=== PATIENT | male | born 1940 | race African-American/Black ===

== ENCOUNTER 2022-12-05 15:09 | Inpatient (IN) ==
[2022-12-05 15:43] LABS: Basophils # 0.1 10*3/uL (0.0-0.2); Basophils % 0.3 % (0.0-0.8); Eosinophils % 0.1 % (0.00-10.9); Hematocrit 44.2 VOL% (42.0-52.0); Hemoglobin 14.5 GM/DL (14.0-18.0); Immature Granulocytes % 1.1 %; Immature Granulocytes Absolute 0.23 #; Lymphocytes # 1.6 10*3/uL (1.4-4.0); Lymphocytes % 7.6 % (21.2-54.2); Mean Corpuscular HGB Conc 32.8 GM/DL (32-36); Mean Corpuscular Volume 89.5 FL (87-102); Mean Platelet Volume 10.2 FL (9.6-12.0); Monocytes % 4.7 % (1.7-12.7); Neutrophils % 86.2 % (38.7-73.9); Platelet Count 178 T/CUMM (130-400); Red Blood Count 4.94 MC/CUMM (3.8-5.5); Red Cell Distribution Width 15.9 % (9.3-17.3); White Blood Count 20.3 T/CUMM (4-12)
[2022-12-05 16:02] LABS: Albumin 2.7 G/DL (3.4-5.0); Bilirubin,Total 0.9 MG/DL (0.20-1.00); Calcium 8.5 MG/DL (8.5-10.1); Osmolality,Calculated 281.4 MOS/KG (273-304); Potassium 3.8 MMOL/L (3.5-5.1)
[2022-12-05 16:29] LABS: INR 3.5; PT Patient Result 34.9 SECS (10.1-12.1); Partial Thromboplastin Time 42.7 SECS (23.7-32.9)
[2022-12-05 16:47] LABS: Sedimentation Rate-Westergren 32 MM/HR (0-20)
[2022-12-05] MEDS ORDERED: CEFEPIME 1,000 MG in SODIUM CHLORIDE 0.9% 100 ML IV STA (18:31)
[2022-12-05] MEDS ORDERED: VANCOMYCIN INJ 1,000 MG in SODIUM CHLORIDE 0.9% 250 ML IV STA (18:31)
[2022-12-05 18:35] LABS: Bacteria,Urine Occasional /HPF (Few); Mucus,Urine Moderate /LPF (Occasional); RBC,Urine 1030 /HPF (0-4); Squamous Epithelial Cell,Urine Occasional /HPF (0-10)
[2022-12-05 18:37] LABS: Bilirubin,Urine Moderate mg/dL (Negative); Blood, Urine Large mg/dL (Negative); Glucose,Urine (UA) Negative (Negative); Ketones,Urine Trace mg/dL (Negative); Nitrite,Urine Positive (Negative); Protein,Urine >=300 mg/dL (Negative); Urine Appearance Slightly Cloudy (Clear); Urine Color Dark Yellow (Yellow); Urine pH 5.5 (4.5-8.0)
[2022-12-05] MEDS ORDERED: GLUCAGON 1 MG VIAL IM PRN (19:07)
[2022-12-05] MEDS ORDERED: hydrALAZINE 20 MG/1 ML VIAL IV PRN (19:07)
[2022-12-05] MEDS ORDERED: DOCUSATE SODIUM 100 MG CAPSULE PO PRN (19:07)
[2022-12-05] MEDS ORDERED: DEXTROSE 50% 25 GM/50 ML VIAL IV PRN (19:07)
[2022-12-05] MEDS ORDERED: ONDANSETRON 4 MG/2 ML VIAL IV PRN (19:07)
[2022-12-05] MEDS ORDERED: ACETAMINOPHEN 325 MG TABLET PO PRN (19:07)
[2022-12-05 19:25] LABS: Eosinophils 1 % (0-10); Lymphocytes 9 % (20-55); Microcytosis Slight; Total Cells Counted 100
[2022-12-05 19:26] LABS: Platelet Estimate Normal
[2022-12-05] MEDS ORDERED: SODIUM CHLORIDE 0.9% 1,000 ML IV SCH (19:30)
[2022-12-05] MEDS ORDERED: WARFARIN 2.5 MG TABLET PO PRN (19:53)
[2022-12-05] MEDS ORDERED: WARFARIN 5 MG TABLET PO PRN (19:54)
[2022-12-05] MEDS: PIPERACILLIN/TAZOBACTAM 3,375 MG in SODIUM CHLORIDE 0.9% 100 ML IV SCH (21:30)
[2022-12-05] MEDS: INSULIN LISPRO 100 UNIT/ML SUBCUT SCH (21:30)
[2022-12-06] MEDS: PIPERACILLIN/TAZOBACTAM 3,375 MG in SODIUM CHLORIDE 0.9% 100 ML IV SCH ×3 (03:05→21:40)
[2022-12-06 06:11] LABS: Basophils % 0.2 % (0.0-0.8); Eosinophils # 0.1 10*3/uL (0.0-0.87); Eosinophils % 0.4 % (0.00-10.9); Hematocrit 43.2 VOL% (42.0-52.0); Hemoglobin 13.8 GM/DL (14.0-18.0); Immature Granulocytes % 0.5 %; Immature Granulocytes Absolute 0.09 #; Lymphocytes # 1.5 10*3/uL (1.4-4.0); Mean Corpuscular HGB Conc 31.9 GM/DL (32-36); Mean Corpuscular Volume 90.8 FL (87-102); Mean Platelet Volume 9.9 FL (9.6-12.0); Monocytes # 1.1 10*3/uL (0.11-0.8); Monocytes % 6.7 % (1.7-12.7); Neutrophils % 83.2 % (38.7-73.9); Platelet Count 163 T/CUMM (130-400); Red Blood Count 4.76 MC/CUMM (3.8-5.5); Red Cell Distribution Width 15.8 % (9.3-17.3)
[2022-12-06 06:20] LABS: INR 3.2
[2022-12-06 06:29] LABS: Calcium 8.7 MG/DL (8.5-10.1); Osmolality,Calculated 281.4 MOS/KG (273-304); Potassium 3.5 MMOL/L (3.5-5.1)
[2022-12-06] MEDS ORDERED: VANCOMYCIN INJ 750 MG in SODIUM CHLORIDE 0.9% 250 ML IV SCH (08:00)
[2022-12-06] MEDS: INSULIN LISPRO 100 UNIT/ML SUBCUT SCH ×4 (08:09→21:40)
[2022-12-06] MEDS: VANCOMYCIN INJ 1,750 MG in SODIUM CHLORIDE 0.9% 500 ML IV SCH (08:35)
[2022-12-07] MEDS: VANCOMYCIN INJ 1,750 MG in SODIUM CHLORIDE 0.9% 500 ML IV SCH ×2 (02:55→21:51)
[2022-12-07] MEDS: PIPERACILLIN/TAZOBACTAM 3,375 MG in SODIUM CHLORIDE 0.9% 100 ML IV SCH ×3 (05:56→20:49)
[2022-12-07 05:59] LABS: INR 1.9; PT Patient Result 20.1 SECS (10.1-12.1)
[2022-12-07] MEDS: INSULIN LISPRO 100 UNIT/ML SUBCUT SCH ×4 (08:28→20:53)
[2022-12-07 08:34] LABS: Basophils # 0.1 10*3/uL (0.0-0.2); Basophils % 0.4 % (0.0-0.8); Eosinophils # 0.1 10*3/uL (0.0-0.87); Eosinophils % 0.6 % (0.00-10.9); Hematocrit 39.3 VOL% (42.0-52.0); Hemoglobin 12.9 GM/DL (14.0-18.0); Immature Granulocytes % 1.4 %; Immature Granulocytes Absolute 0.17 #; Lymphocytes # 1.4 10*3/uL (1.4-4.0); Lymphocytes % 11.5 % (21.2-54.2); Mean Corpuscular HGB Conc 32.8 GM/DL (32-36); Mean Corpuscular Volume 88.3 FL (87-102); Mean Platelet Volume 10.4 FL (9.6-12.0); Monocytes % 8.3 % (1.7-12.7); Neutrophils % 77.8 % (38.7-73.9); Platelet Count 180 T/CUMM (130-400); Red Blood Count 4.45 MC/CUMM (3.8-5.5); Red Cell Distribution Width 15.7 % (9.3-17.3); White Blood Count 12.1 T/CUMM (4-12)
[2022-12-07 08:45] LABS: Calcium 8.8 MG/DL (8.5-10.1); Osmolality,Calculated 276.5 MOS/KG (273-304); Potassium 3.4 MMOL/L (3.5-5.1)
[2022-12-07] MEDS: BRIMONIDINE 0.2% OPH SOLN 5 ML BOTTLE BOTH EYES SCH ×2 (16:23→23:27)
[2022-12-07] MEDS: OXYBUTYNIN 5 MG TABLET PO SCH ×2 (16:23→20:45)
[2022-12-07] MEDS: ATORVASTATIN 20 MG TABLET PO SCH (20:45)
[2022-12-07] MEDS: LATANOPROST 0.005% OPH SOLN 2.5 ML BOTTLE BOTH EYES SCH (20:45)
[2022-12-07] MEDS: TAMSULOSIN 0.4 MG CAPSULE PO SCH (20:45)
[2022-12-07] MEDS: SODIUM CHLORIDE 0.9% 1,000 ML IV SCH (21:35)
[2022-12-07] MEDS: DORZOLAMIDE/TIMOLOL OPH SOLN 10 ML BOTTLE BOTH EYES SCH (23:27)
[2022-12-08] MEDS: PIPERACILLIN/TAZOBACTAM 3,375 MG in SODIUM CHLORIDE 0.9% 100 ML IV SCH ×3 (04:33→21:11)
[2022-12-08 05:23] LABS: Basophils % 0.2 % (0.0-0.8); Eosinophils # 0.1 10*3/uL (0.0-0.87); Eosinophils % 0.9 % (0.00-10.9); Hematocrit 37.2 VOL% (42.0-52.0); Hemoglobin 12.5 GM/DL (14.0-18.0); Immature Granulocytes % 2.2 %; Immature Granulocytes Absolute 0.19 #; Lymphocytes # 1.3 10*3/uL (1.4-4.0); Lymphocytes % 15.3 % (21.2-54.2); Mean Corpuscular HGB Conc 33.6 GM/DL (32-36); Mean Corpuscular Volume 88.8 FL (87-102); Mean Platelet Volume 10.3 FL (9.6-12.0); Monocytes # 0.7 10*3/uL (0.11-0.8); Monocytes % 8.2 % (1.7-12.7); Neutrophils % 73.2 % (38.7-73.9); Platelet Count 197 T/CUMM (130-400); Red Blood Count 4.19 MC/CUMM (3.8-5.5); Red Cell Distribution Width 15.5 % (9.3-17.3); White Blood Count 8.8 T/CUMM (4-12)
[2022-12-08 05:35] LABS: INR 1.5
[2022-12-08 05:49] LABS: Albumin 2.1 G/DL (3.4-5.0); Bilirubin,Total 0.5 MG/DL (0.20-1.00); Calcium 8.9 MG/DL (8.5-10.1); Osmolality,Calculated 280.3 MOS/KG (273-304); Potassium 3.3 MMOL/L (3.5-5.1); Total Protein 6.9 G/DL (6.4-8.2)
[2022-12-08] MEDS: INSULIN LISPRO 100 UNIT/ML SUBCUT SCH ×4 (08:14→21:11)
[2022-12-08] MEDS: BRIMONIDINE 0.2% OPH SOLN 5 ML BOTTLE BOTH EYES SCH ×3 (08:58→21:11)
[2022-12-08] MEDS: FINASTERIDE 5 MG TABLET PO SCH (08:58)
[2022-12-08] MEDS: WARFARIN 2.5 MG TABLET PO SCH (08:58)
[2022-12-08] MEDS: OXYBUTYNIN 5 MG TABLET PO SCH ×3 (08:58→21:09)
[2022-12-08] MEDS: DORZOLAMIDE/TIMOLOL OPH SOLN 10 ML BOTTLE BOTH EYES SCH ×2 (08:59→21:11)
[2022-12-08] MEDS: SODIUM CHLORIDE 0.9% 1,000 ML IV SCH ×2 (12:47→18:52)
[2022-12-08] MEDS: VANCOMYCIN INJ 1,750 MG in SODIUM CHLORIDE 0.9% 500 ML IV SCH (16:35)
[2022-12-08] MEDS: ATORVASTATIN 20 MG TABLET PO SCH (21:08)
[2022-12-08] MEDS: TAMSULOSIN 0.4 MG CAPSULE PO SCH (21:08)
[2022-12-08] MEDS: LATANOPROST 0.005% OPH SOLN 2.5 ML BOTTLE BOTH EYES SCH (21:09)
[2022-12-09] MEDS: SODIUM CHLORIDE 0.9% 1,000 ML IV SCH ×2 (04:00→12:56)
[2022-12-09] MEDS: PIPERACILLIN/TAZOBACTAM 3,375 MG in SODIUM CHLORIDE 0.9% 100 ML IV SCH ×3 (04:44→21:25)
[2022-12-09 05:53] LABS: Basophils % 0.3 % (0.0-0.8); Eosinophils # 0.1 10*3/uL (0.0-0.87); Eosinophils % 0.8 % (0.00-10.9); Hematocrit 36.5 VOL% (42.0-52.0); Immature Granulocytes % 1.8 %; Immature Granulocytes Absolute 0.14 #; Lymphocytes # 1.3 10*3/uL (1.4-4.0); Lymphocytes % 16.9 % (21.2-54.2); Mean Corpuscular HGB Conc 32.9 GM/DL (32-36); Mean Corpuscular Volume 88.2 FL (87-102); Mean Platelet Volume 9.5 FL (9.6-12.0); Monocytes # 0.6 10*3/uL (0.11-0.8); Neutrophils % 72.2 % (38.7-73.9); Platelet Count 221 T/CUMM (130-400); Red Blood Count 4.14 MC/CUMM (3.8-5.5); Red Cell Distribution Width 15.5 % (9.3-17.3); White Blood Count 7.8 T/CUMM (4-12)
[2022-12-09 06:18] LABS: Albumin 1.9 G/DL (3.4-5.0); Bilirubin,Total 0.4 MG/DL (0.20-1.00); Calcium 8.5 MG/DL (8.5-10.1); Osmolality,Calculated 280.3 MOS/KG (273-304); Potassium 3.5 MMOL/L (3.5-5.1); Total Protein 6.8 G/DL (6.4-8.2)
[2022-12-09] MEDS: INSULIN LISPRO 100 UNIT/ML SUBCUT SCH ×4 (07:48→22:36)
[2022-12-09] MEDS: FINASTERIDE 5 MG TABLET PO SCH (08:40)
[2022-12-09] MEDS: BRIMONIDINE 0.2% OPH SOLN 5 ML BOTTLE BOTH EYES SCH ×3 (08:40→21:25)
[2022-12-09] MEDS: DORZOLAMIDE/TIMOLOL OPH SOLN 10 ML BOTTLE BOTH EYES SCH ×2 (08:40→21:25)
[2022-12-09] MEDS: OXYBUTYNIN 5 MG TABLET PO SCH ×3 (08:40→21:25)
[2022-12-09] MEDS: VANCOMYCIN INJ 1,750 MG in SODIUM CHLORIDE 0.9% 500 ML IV SCH (08:43)
[2022-12-09] MEDS ORDERED: WARFARIN 5 MG TABLET PO SCH (09:00)
[2022-12-09] MEDS: TAMSULOSIN 0.4 MG CAPSULE PO SCH (21:25)
[2022-12-09] MEDS: ATORVASTATIN 20 MG TABLET PO SCH (21:25)
[2022-12-09] MEDS: LATANOPROST 0.005% OPH SOLN 2.5 ML BOTTLE BOTH EYES SCH (21:25)
[2022-12-10] MEDS: SODIUM CHLORIDE 0.9% 1,000 ML IV SCH (02:48)
[2022-12-10] MEDS: VANCOMYCIN INJ 1,750 MG in SODIUM CHLORIDE 0.9% 500 ML IV SCH (03:00)
[2022-12-10] MEDS: PIPERACILLIN/TAZOBACTAM 3,375 MG in SODIUM CHLORIDE 0.9% 100 ML IV SCH (05:49)
[2022-12-10 06:08] LABS: Basophils % 0.6 % (0.0-0.8); Eosinophils % 0.6 % (0.00-10.9); Hematocrit 37.6 VOL% (42.0-52.0); Hemoglobin 12.4 GM/DL (14.0-18.0); Immature Granulocytes Absolute 0.07 #; Lymphocytes # 1.1 10*3/uL (1.4-4.0); Lymphocytes % 15.5 % (21.2-54.2); Mean Corpuscular Volume 89.3 FL (87-102); Mean Platelet Volume 9.4 FL (9.6-12.0); Monocytes # 0.5 10*3/uL (0.11-0.8); Monocytes % 7.7 % (1.7-12.7); Neutrophils % 74.6 % (38.7-73.9); Platelet Count 241 T/CUMM (130-400); Red Blood Count 4.21 MC/CUMM (3.8-5.5); Red Cell Distribution Width 15.5 % (9.3-17.3); White Blood Count 6.9 T/CUMM (4-12)
[2022-12-10 06:24] LABS: Calcium 8.5 MG/DL (8.5-10.1); Osmolality,Calculated 276.5 MOS/KG (273-304); Potassium 3.6 MMOL/L (3.5-5.1)
[2022-12-10 06:24] LABS: INR 1.2; PT Patient Result 13.5 SECS (10.1-12.1)
[2022-12-10] MEDS: BRIMONIDINE 0.2% OPH SOLN 5 ML BOTTLE BOTH EYES SCH ×3 (08:58→21:40)
[2022-12-10] MEDS: DORZOLAMIDE/TIMOLOL OPH SOLN 10 ML BOTTLE BOTH EYES SCH ×2 (08:58→21:40)
[2022-12-10] MEDS: FINASTERIDE 5 MG TABLET PO SCH (09:00)
[2022-12-10] MEDS: WARFARIN 2.5 MG TABLET PO SCH (09:00)
[2022-12-10] MEDS: OXYBUTYNIN 5 MG TABLET PO SCH ×3 (09:00→21:35)
[2022-12-10] MEDS: INSULIN LISPRO 100 UNIT/ML SUBCUT SCH ×4 (09:01→21:23)
[2022-12-10] MEDS: CLINDAMYCIN 150 MG CAPSULE PO SCH ×2 (16:25→21:36)
[2022-12-10] MEDS: TAMSULOSIN 0.4 MG CAPSULE PO SCH (21:35)
[2022-12-10] MEDS: ATORVASTATIN 20 MG TABLET PO SCH (21:35)
[2022-12-10] MEDS: LATANOPROST 0.005% OPH SOLN 2.5 ML BOTTLE BOTH EYES SCH (21:41)
[2022-12-11 05:30] LABS: INR 1.3; PT Patient Result 13.7 SECS (10.1-12.1)
[2022-12-11 05:34] LABS: Calcium 8.9 MG/DL (8.5-10.1); Osmolality,Calculated 275.5 MOS/KG (273-304); Potassium 3.7 MMOL/L (3.5-5.1)
[2022-12-11] MEDS ORDERED: MAGNESIUM SULF RIDER 2 GM/50 ML PREMIX IV ONE (07:52)
[2022-12-11] MEDS: INSULIN LISPRO 100 UNIT/ML SUBCUT SCH ×4 (08:45→23:00)
[2022-12-11] MEDS: FINASTERIDE 5 MG TABLET PO SCH (09:51)
[2022-12-11] MEDS: BRIMONIDINE 0.2% OPH SOLN 5 ML BOTTLE BOTH EYES SCH ×3 (09:51→23:01)
[2022-12-11] MEDS: CLINDAMYCIN 150 MG CAPSULE PO SCH ×3 (09:51→22:58)
[2022-12-11] MEDS: OXYBUTYNIN 5 MG TABLET PO SCH ×3 (09:51→23:00)
[2022-12-11] MEDS: WARFARIN 5 MG TABLET PO SCH (09:51)
[2022-12-11] MEDS: DORZOLAMIDE/TIMOLOL OPH SOLN 10 ML BOTTLE BOTH EYES SCH ×2 (09:51→23:00)
[2022-12-11] MEDS: SODIUM CHLORIDE 0.9% 1,000 ML IV SCH (11:02)
[2022-12-11] MEDS: MAGNESIUM CHLORIDE 64 MG TABLET PO SCH (22:59)
[2022-12-11] MEDS: ATORVASTATIN 20 MG TABLET PO SCH (22:59)
[2022-12-11] MEDS: TAMSULOSIN 0.4 MG CAPSULE PO SCH (23:00)
[2022-12-11] MEDS: LATANOPROST 0.005% OPH SOLN 2.5 ML BOTTLE BOTH EYES SCH (23:01)
[2022-12-12 05:31] LABS: Calcium 8.8 MG/DL (8.5-10.1); Potassium 3.7 MMOL/L (3.5-5.1)
[2022-12-12 07:07] LABS: INR 1.2; PT Patient Result 13.1 SECS (10.1-12.1)
[2022-12-12] MEDS: INSULIN LISPRO 100 UNIT/ML SUBCUT SCH (07:35)
[2022-12-12 08:22] VITALS: BP 153/67
[2022-12-12] MEDS: CLINDAMYCIN 150 MG CAPSULE PO SCH (10:12)
[2022-12-12] MEDS: FINASTERIDE 5 MG TABLET PO SCH (10:12)
[2022-12-12] MEDS: BRIMONIDINE 0.2% OPH SOLN 5 ML BOTTLE BOTH EYES SCH (10:13)
[2022-12-12] MEDS: OXYBUTYNIN 5 MG TABLET PO SCH (10:13)
[2022-12-12] MEDS: DORZOLAMIDE/TIMOLOL OPH SOLN 10 ML BOTTLE BOTH EYES SCH (10:13)
[2022-12-12] MEDS: MAGNESIUM CHLORIDE 64 MG TABLET PO SCH (10:13)
[2022-12-12] MEDS: WARFARIN 5 MG TABLET PO SCH (10:13)
== END 2022-12-12 10:20 | DRG 603 ==
LOC: N.EDINP 15:09 → N.ED 15:09 → N.EDINP 20:21 → N.2E 20:52
PROVIDERS: ADMIT Emergency Medicine; ATTEND Emergency Medicine